=== PATIENT | male | born 1990 | race American Indian/Alaskan Native ===

== ENCOUNTER 2017-07-05 14:37 | Emergency (ER) | payer MEDICAID ==
[2017-07-05 16:25] LABS: Hematocrit 46.9 % (35.5-45.6); Hemoglobin 15.3 gm/dl (11.8-15.2); Mean Corpuscular HGB Conc 33 % (32-34); Mean Corpuscular Hemoglobin 28 pg (28-32); Mean Corpuscular Volume 86 fl (84-94); Platelet Count 257 K/mm3 (140-440); Red Blood Count 5.45 M/mm3 (3.65-5.03)
[2017-07-05] MEDS ORDERED: NORMODYNE IV ONE (16:30)
[2017-07-05] MEDS ORDERED: ATIVAN IV ONE (16:31)
--- NOTE | 2017-07-05 16:40 | Emergency Department Report ---
ED Seizure HPI - General Chief Complaint: Seizure Stated Complaint: SEIZURE Time Seen by Provider: 07/05/17 16:11 Source: patient, family, EMS Mode of arrival: Stretcher Limitations: Other - History of Present Illness Initial Comments: Patient father said he witnessed the patient have a grand mal seizure while they were in a restaurant this afternoon. He is not sure if the patient has been receiving his seizure medicines as prescribed. I spoke to patient's mother over the phone and she requested that patient's hemoglobin A1c be checked. I advised that that is not necessary for management of the patient's seizure disorder and moreover patient is not a diabetic. MD Complaint: seizure -: Sudden Description of Episode: loss of consciousness, tonic-clonic movement Witnessed:: Yes Trauma: No Seizure History: known seizure disorder Place: other (restaurant) Possible Precipitating Event: other (possibly missed his Keppra.) Associated Symptoms: other (patient is non verbal) Treatments Prior to Arrival: none - Related Data Home Medications Medication Instructions Recorded Confirmed Last Taken Metoprolol [Lopressor TAB] 1 tab PO BID 07/05/17 07/05/17 Unknown levETIRAcetam NICU (5 MG/ML) 2,000 mg PO BID 07/05/17 07/05/17 07/05/17 [Keppra NICU INJ DILUTION] Allergies Allergy/AdvReac Type Severity Reaction Status Date / Time No Known Allergies Allergy Unverified 07/05/17 14:58 ED Review of Systems ROS: Stated complaint: SEIZURE Other details as noted in HPI Comment: Unobtainable due to pts medical conditions (patient is non verbal.) ED Past Medical Hx - Past Medical History Previous Medical History?: Yes Hx Hypertension: Yes Hx Seizures: Yes Additional medical history: Autism - Surgical History Past Surgical History?: No - Social History Smoking Status: Never Smoker Substance Use Type: Prescribed - Medications Home Medications: Home Medications Medication Instructions Recorded Confirmed Last Taken Type Metoprolol [Lopressor TAB] 1 tab PO BID 07/05/17 07/05/17 Unknown History levETIRAcetam NICU (5 MG/ML) 2,000 mg PO BID 07/05/17 07/05/17 07/05/17 History [Keppra NICU INJ DILUTION] ED Physical Exam - General Limitations: Other (patient is non verbal.) General appearance: alert, in no apparent distress - Head Head exam: Present: atraumatic, normocephalic, normal inspection - Eye Eye exam: Present: normal appearance, PERRL Pupils: Present: normal accommodation - ENT ENT exam: Present: normal exam, normal orophraynx, mucous membranes moist - Neck Neck exam: Present: normal inspection, full ROM - Respiratory Respiratory exam: Present: normal lung sounds bilaterally - Cardiovascular Cardiovascular Exam: Present: tachycardia, normal heart sounds - GI/Abdominal GI/Abdominal exam: Present: soft, normal bowel sounds. Absent: tenderness, guarding, rebound - Extremities Exam Extremities exam: Present: normal inspection, normal capillary refill - Back Exam Back exam: Present: normal inspection, full ROM - Neurological Exam Neurological exam: Present: alert - Psychiatric Psychiatric exam: Present: flat affect - Skin Skin exam: Present: warm, dry, intact, normal color. Absent: rash ED Course Vital Signs 07/05/17 07/05/17 07/05/17 15:01 15:30 16:00 Temperature 98.3 F Pulse Rate 109 H 113 H 116 H Respiratory 22 12 16 Rate Blood Pressure 131/78 Blood Pressure 165/76 153/78 [Left] O2 Sat by Pulse 97 94 94 Oximetry 07/05/17 07/05/17 07/05/17 16:41 16:42 17:30 Temperature Pulse Rate 106 H 96 H Respiratory 17 20 Rate Blood Pressure 134/89 Blood Pressure 164/82 [Left] O2 Sat by Pulse 94 96 Oximetry - Reevaluation(s) Reevaluation #1: 07/05/17 18:00. I consulted the tele neurologist concrete pourer Dr Mooney. He told me to discharge the patient home on the same seizure medication of Keppra 2 gm twice a day. He said it is possible that patient has not been very compliant with his seizure medication. He wants patient to follow up with his neurologist Dr. Domínguez on Thursday and hopefully by then his Keppra level should have resulted. He does not want to change the dose of the patients Keppra currently. Reevaluation #2: 07/05/17 19:27 Patients father said he does not need any refill of his medications and that the patient has a lot of medications at home. ED Medical Decision Making - Lab Data Result diagrams: 07/05/17 16:17 07/05/17 16:17 - Radiology Data Radiology results: report reviewed, image reviewed - Medical Decision Making Seizure disorder. Critical care attestation.: If time is entered above; I have spent that time in minutes in the direct care of this critically ill patient, excluding procedure time. ED Disposition Clinical Impression: Seizure disorder Disposition: TO HOME OR SELFCARE Is pt being admited?: No Does the pt Need Aspirin: No Condition: Stable Instructions: Epilepsy (ED), Recurrent Seizures Adult (ED) Additional Instructions: Please follow up with your neurologist Dr. Domínguez on Thursday. Return to the emergency room if her condition worsens. Referrals: BELINDA DOMÍNGUEZ [Staff Physician] - 3-5 Days Time of Disposition: 19:20
[2017-07-05 16:44] LABS: BUN/Creatinine Ratio 10; Blood Urea Nitrogen 9 mg/dL (9-20); Calcium 9.5 mg/dL (8.4-10.2); Hemolysis Index 11
--- NOTE | 2017-07-05 17:00 | XRay Report ---
FINAL REPORT EXAM: XR CHEST 1V AP HISTORY: Seizure TECHNIQUE: Frontal semi erect chest x-ray Comparison: None FINDINGS: Low volume exam. Heart size upper limits normal. Crowding in both bases could obscure subtle infiltrates. Imaged axial skeleton is unremarkable. IMPRESSION: Hypoventilated exam with crowding at both bases. Heart size upper limits normal. Recommend larger inspiratory volume follow-up two view chest.
[2017-07-05] MEDS ORDERED: KEPPRA 1,000 MG/NS 0.75% 100ML 1,000 MG/100 ML BAG IV ONE (17:08)
[2017-07-05 17:37] LABS: Alanine Aminotransferase 42 units/L (7-56); Albumin 4.4 g/dL (3.9-5); Bilirubin,Direct < 0.2 mg/dL (0-0.2)
--- NOTE | 2017-07-05 17:41 | Cat Scan Report ---
FINAL REPORT EXAM: CT HEAD/BRAIN WO CON HISTORY: Seizure TECHNIQUE: Standard unenhanced CT of the head at 5.0 millimeter axial increments. PRIORS: None. FINDINGS: The ventricular system is normal in size and configuration. There is no evidence for parenchymal volume loss. There is no evidence for mass lesion, mass effect, midline shift, acute intracranial hemorrhage, or acute ischemia/ infarction. No evidence for acute skull fracture is seen. No abnormality in the overlying scalp soft tissues is seen. 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 Visualized paranasal sinuses are clear. IMPRESSION: Negative CT of the head. No acute intracranial process noted.
[2017-07-05 17:52] VITALS: BP 164/82
[2017-07-05] MEDS ORDERED: K-DUR PO ONE (17:53)
== END 2017-07-05 19:39 | disposition home or self-care (01) ==
LOC: ED 14:37
DX: G40.909 Epilepsy, unspecified, not intractable, without status epilepticus (principal); I10 Essential (primary) hypertension; F84.0 Autistic disorder
CPT/HCPCS: 36415; 70450; 71045; 80048; 80074; 80177; 85027; 96374; 96375; 99285; J1953; J2060